=== PATIENT | female | born 1925 | race Caucasian/White ===

== ENCOUNTER 2017-06-19 01:42 | Emergency (ER) | payer MEDICARE ==
[~2017-06-19] VITALS: Ht 157.5 cm; Wt 55.0 kg
[~2017-06-19 01:42] MED LIST: BENI20TA25 PO; ESCI5TAB PO; MELO7.5 PO; PRED20 PO; PRESCAP5 PO; PROT40TA PO; SIMV20 PO; ZYRT10CA PO
[2017-06-19 01:47] VITALS: BP 214/90; PULSE 75; RESP 18; TEMP 98.2; O2SAT 97
--- NOTE | 2017-06-19 02:18 | PD ---
HPI . Left hand injury Chief Complaint: Skin Problem Time Seen by Provider: 02:13 Travel History International Travel<30 days: No Contact w/Intl Traveler<30days: No Traveled to known affect area: No History of Present Illness HPI Patient presents with a skin tear on the left hand. He was trying to retrieve her keys from underneath the seat of a car. She has very thin skin and the skin just before. She does not know the date of her last tetanus. She is going to check with her primary care provider tomorrow to see whether or not she needs an update. Modifying factor is thin skin. Pain is 0. PFSH Past Medical History Hx Anticoagulant Therapy: Yes (ASPIRIN) High Cholesterol: Yes Diminished Hearing: No Gastrointestinal Disorders: Yes (CHOLECYSTITIS) Hypertension: Yes Tetanus Vaccination: Unknown ?: Not Menopausal: Yes Past Surgical History Appendectomy: Yes Section: Yes (X1) Hysterectomy: Yes Social History Alcohol Use: Yes (RARE) Tobacco Use: No Substance Use: No Allergies-Medications (Allergen,Severity, Reaction): Coded Allergies: penicillin G (Unverified Allergy, Unknown, 04/30/17) Reported Meds & Prescriptions Reported Meds & Active Scripts Active Zyrtec Allergy (Cetirizine HCl) 10 Mg Cap 10 Mg PO DAILY Prednisone 20 Mg Tab 20 Mg PO BID Mobic 7.5 Mg Tab (Meloxicam) 7.5 Mg Tab 7.5 Mg PO BID Protonix (Pantoprazole Sodium) 40 Mg Tab 40 Mg PO DAILY Take when taking NSAIDs Reported Escitalopram Oxalate 5 Mg Tab 5 Mg PO Simvastatin 20 mg (Simvastatin) 20 Mg Tab 1 Tab PO HS Benicar (Olmesartan) 20 Mg Tab 20 Mg PO DAILY Preservision Areds 2 1 PO Review of Systems Except as stated in HPI: all other systems reviewed are Neg Skin: Positive Other (skin tear, left hand) Physical Exam Narrative GENERAL: Elderly woman who is awake and alert and in no acute distress. SKIN: She has a flap-like skin tear on the dorsal aspect of her left hand. It is about 2 cm long. HEAD: Normocephalic/atraumatic. EYES: Pupils are equal. Extraocular movements are intact. NECK: Full range of motion with no pain. RESPIRATORY: Nonlabored respirations. MUSCULOSKELETAL: Atraumatic. NEUROLOGICAL: Nonfocal. PSYCHIATRIC: Appropriate mood and affect. Data Data Last Documented VS Vital Signs Date Time Temp Pulse Resp B/P (MAP) Pulse Ox O2 Delivery O2 Flow Rate FiO2 06/19/17 01:47 98.2 75 18 214/90 (131) 97 MDM Medical Decision Making Medical Screen Exam Complete: Yes Emergency Medical Condition: Yes Differential Diagnosis Differential diagnosis includes but is not limited to skin laceration, muscular laceration, tendon laceration, neurovascular laceration. Narrative Course This patient presents with a skin tear on the dorsal aspect of her left hand. The laceration will be repaired with Steri-Strips by the nurse. Diagnosis Primary Impression: Skin tear of hand without complication Qualified Codes: S61.412A - Laceration without foreign body of left hand, initial encounter Disposition: DISCHARGE HOME Condition: Stable Rebecca Taveras MD Jun 19, 2017 02:18
== END 2017-06-19 02:30 | disposition home or self-care (01) ==
LOC: NEPC 01:42
DX: S61.412A Laceration without foreign body of left hand, initial encounter (principal); E78.00 Pure hypercholesterolemia, unspecified; I10 Essential (primary) hypertension; X58.XXXA Exposure to other specified factors, initial encounter; Z79.899 Other long term (current) drug therapy; Z88.0 Allergy status to penicillin
CPT/HCPCS: 99282